=== PATIENT | female | born 1985 | race Caucasian/White ===

== ENCOUNTER 2019-07-30 16:38 | Emergency (ER) | payer BC ==
[2019-07-30] MEDS ORDERED: TYLENOL EXTRA STRENGTH 500 MG PO STA (17:11)
--- NOTE | 2019-07-30 17:16 | ERPHSYRPT ---
- History of Present Illness Time Seen by Provider: 07/30/19 16:41 Source: patient Exam Limitations: no limitations Patient Subjective Stated Complaint: pt to ER with complaints of R wrist injury around 1330. pt states she was mowing and grab a dog chain and the mower grabbed with chain at the same time and yanked her wrist. pt states pain makes her nauseated. Triage Nursing Assessment: pt ambulatory. A&Ox4. pt skin pwd. good pulses. Physician History: Patient is here with right wrist pain. Just prior to arrival approximately 1 PM , patient was mowing the grass. She states that her hand got caught on the mower in an awkward angle. She now has right lateral wrist pain. No actual fall or trauma. She states that it just twisted oddly. She has tried taking ibuprofen. She has not iced or used Tylenol. Location: right wrist pain Quality: sharp Radiation: into hand Severity: moderate Duration: 1 pm today Timing: after injury Modifying factors/associated signs and symptoms: home ibuprofen Allergies/Adverse Reactions: No Known Drug Allergies Allergy (Unverified 07/30/19 16:53) Hx Tetanus, Diphtheria Vaccination/Date Given: Yes Hx Influenza Vaccination/Date Given: Yes Hx Pneumococcal Vaccination/Date Given: No Immunizations Up to Date: Yes Travel Risk - International Travel Have you traveled outside of the country in past 3 weeks: No Have you or anyone close to you been diagnosed with or: No Do your reside in a community with a known COVID-19 case?: Yes If Yes where:: [place] - Coronavirus Screening Has patient experienced Coronavirus symptoms: No - Review of Systems Constitutional: No Fever, No Chills Eyes: No Symptoms Ears, Nose, & Throat: No Symptoms Respiratory: No Cough, No Dyspnea Cardiac: No Chest Pain, No Edema, No Syncope Abdominal/Gastrointestinal: No Abdominal Pain, No Nausea, No Vomiting, No Diarrhea Genitourinary Symptoms: No Dysuria Musculoskeletal: Injury (Right wrist pain), No Back Pain, No Neck Pain Skin: No Rash Neurological: No Dizziness, No Focal Weakness, No Sensory Changes Psychological: No Symptoms Endocrine: No Symptoms All Other Systems: Reviewed and Negative - Past Medical History Pertinent Past Medical History: No Neurological History: No Pertinent History ENT History: No Pertinent History Cardiac History: No Pertinent History Respiratory History: No Pertinent History Endocrine Medical History: No Pertinent History Musculoskeletal History: No Pertinent History GI Medical History: No Pertinent History History: No Pertinent History Psycho-Social History: No Pertinent History Female Reproductive Disorders: No Pertinent History - Past Surgical History Past Surgical History: Yes Neuro Surgical History: No Pertinent History Cardiac: No Pertinent History Respiratory: No Pertinent History Gastrointestinal: No Pertinent History Genitourinary: No Pertinent History Musculoskeletal: No Pertinent History Female Surgical History: Tubal Ligation - Social History Smoking Status: Current some day smoker How long have you smoked: 5 Exposure to second hand smoke: Yes Drug Use: none Patient Lives Alone: No - Female History Hx Now: No - Nursing Vital Signs Nursing Vital Signs: Initial Vital Signs Temperature 99 F 07/30/19 16:42 Pulse Rate 66 07/30/19 16:42 Respiratory Rate 15 07/30/19 16:42 Blood Pressure 124/76 07/30/19 16:42 O2 Sat by Pulse Oximetry 94 L 07/30/19 16:42 Pain Scale Pain Intensity 8 - Physical Exam General Appearance: no apparent distress, alert Eye Exam: PERRL/EOMI, eyes nml inspection Ears, Nose, Throat Exam: normal ENT inspection, TMs normal, pharynx normal, moist mucous membranes Neck Exam: normal inspection, non-tender, supple, full range of motion Respiratory Exam: normal breath sounds, lungs clear, No respiratory distress Cardiovascular Exam: regular rate/rhythm, normal heart sounds, normal peripheral pulses Gastrointestinal/Abdomen Exam: soft, normal bowel sounds, No tenderness, No mass Back Exam: normal inspection, normal range of motion, No CVA tenderness, No vertebral tenderness Extremity Exam: normal inspection, normal range of motion, pelvis stable Neurologic Exam: alert, oriented x 3, cooperative, normal mood/affect, nml cerebellar function, nml station & gait, sensation nml, No motor deficits Skin Exam: normal color, warm, dry, No rash Lymphatic Exam: No adenopathy SpO2 Interpretation: normal SpO2: 94 Comments: 07/30/19 17:15 No obvious deformity, sensation intact, 2+ capillary refill, 2 point tactile discrimination intact. 5 out of 5 strength. Full range of motion with pain. Compartments are soft, nontender. Overlying skin shows no tenting, bruising, ecchymosis. - Radiology Exams Wrist X-ray Interpretation: Interpreted by me (No fracture my read) Ordered Tests: Active Orders 24 hr Category Date Time Status HAND (MINIMUM 3 VIEWS) Stat Exams 07/30/19 17:25 Taken WRIST (MIN 3 VIEWS) Stat Exams 07/30/19 17:25 Taken Medication Summary Discontinued Medications Generic Name Dose Route Start Last Admin Trade Name Jay PRN Reason Stop Dose Admin Acetaminophen 1,000 mg 07/30/19 17:11 07/30/19 17:22 Tylenol Extra Strength 500 Mg PO 07/30/19 17:12 1,000 mg STAT STA Administration Acetaminophen Confirm 07/30/19 17:20 Tylenol Extra Strength 500 Mg Administered 07/30/19 17:21 Dose 1,000 mg .ROUTE .KeasMED ONE - Progress Progress: improved Progress Note: 07/30/19 17:16 We will obtain an x-ray of the right wrist, ice to the affected area, oral Tylenol. 07/30/19 17:55 X-ray shows no obvious fracture. Patient will need a repeat x-ray in 1 week if pain continues. Return here for new or changing symptoms. Until then ice, rest , Tylenol, ibuprofen. - Departure Departure Disposition: Home Clinical Impression: Sprain of wrist, right Condition: Stable Critical Care Time: No Referrals: SEJAL PATEL NP [Primary Care Provider] - Instructions: Wrist Sprain Additional Instructions: X-rays in 1 week if pain continues. Otherwise return here for new or changing symptoms.
[2019-07-30] MEDS ORDERED: TYLENOL EXTRA STRENGTH 500 MG ONE (17:20)
[2019-07-30 17:44] VITALS: BP 108/62; PULSE 56
[2019-07-30 17:56] VITALS: O2SAT 94
--- NOTE | 2019-07-31 09:14 | XRAY ---
Indication: Pain following injury. Comparison: None 3 view right hand obtained. No bony, articular, or soft tissue abnormalities.
--- NOTE | 2019-07-31 09:14 | XRAY ---
Indication: Pain following injury. Comparison: None 3 view right wrist obtained. No bony, articular, or soft tissue abnormalities.
== END 2019-07-30 18:10 | disposition home or self-care (01) ==
LOC: ED 16:38
DX: S63.501A Unspecified sprain of right wrist, initial encounter (principal); M25.531 Pain in right wrist; X50.0XXA Overexertion from strenuous movement or load, initial encounter; X50.9XXA Other and unspecified overexertion or strenuous movements or postures, initial encounter; Y93.H2 Activity, gardening and landscaping; Y92.89 Other specified places as the place of occurrence of the external cause
CPT/HCPCS: 73110; 73130; 99283; A9270-GY